=== PATIENT | female | born 1955 | race Two or more races ===

== ENCOUNTER 2022-10-28 23:46 | Inpatient (IN) | payer MEDICARE, OTHER ==
[~2022-10-28] VITALS: Ht 157.5 cm; Wt 63.0 kg
[2022-10-28] MEDS ORDERED: ARIP5TAB10 PO (23:58)
[2022-10-28] MEDS ORDERED: PANT40TA49 PO (23:58)
[2022-10-28] MEDS ORDERED: QUET25TA PO (23:58)
[2022-10-29 00:19] LABS: HEMATOCRIT 38.4 % (31.2-41.9); MEAN CORPUSCULAR HEMOGLOBIN 30.3 uug (24.7-32.8); MEAN CORPUSCULAR VOLUME 90.9 fL (75.5-95.3); PLATELET COUNT (AUTO) 261 K/uL (179-408)
[2022-10-29 00:43] LABS: ETHANOL < 3 MG/DL (0-0)
[2022-10-29 00:59] LABS: CARBON DIOXIDE 28 mmol/L (21-32); CHLORIDE 106 mmol/L (98-107); CREATININE 0.5 mg/dL (0.6-1.3); GLUCOSE 130 mg/dL (74-106); POTASSIUM 3.9 mmol/L (3.5-5.1); UREA NITROGEN, BLOOD 10 mg/dL (7-18)
[2022-10-29 01:05] LABS: *BILIRUBIN,URIN NEGATIVE (NEGATIVE); *CLARITY,URINE CLEAR (CLEAR); *COLOR,URINE LIGHT YELLOW (YELLOW); *KETONES,URINE NEGATIVE (NEGATIVE); *UROBILINOGEN,URINE 0.2 E.U./dl (NORMAL); LEUKOCYTE ESTERASE ,URINE TRACE (NEGATIVE); NITRITE, URINE NEGATIVE (NEGATIVE); UGLUCOSE NEGATIVE (NEGATIVE)
[2022-10-29 01:11] LABS: *BLOOD, URINE TRACE (NEGATIVE)
[2022-10-29 01:12] LABS: THYROID STIMULATING HORMONE 10.103 mIU/mL (0.358-3.740)
[2022-10-29 01:15] LABS: ALANINE AMINOTRANSFERASE 16 U/L (14-59); ALKALINE PHOSPHATASE 79 U/L (50-136); ASPARTATE AMINOTRANSFERASE 10 U/L (15-37); BILIRUBIN,DIRECT 0.1 mg/dL (0.0-0.2); BILIRUBIN,TOTAL 0.3 mg/dL (0.2-1.0); TOTAL PROTEIN, SERUM 6.4 g/dL (6.4-8.2)
[2022-10-29 01:17] LABS: ACETAMINOPHEN < 10.0 ug/mL (10-30)
[2022-10-29 01:28] LABS: BACTERIA,URINE FEW /HPF (NONE SEEN); SQUAMOUS EPITHELIAL CELL,UR FEW /HPF (NONE SEEN); WBC,URINE 0-3 /HPF (0-3)
[2022-10-29 01:29] LABS: *AMPHETAMINE, URINE NEGATIVE (NEGATIVE); *CANNABINOID, URINE NEGATIVE (NEGATIVE); *COCCAINE, URINE NEGATIVE (NEGATIVE); *PHENCYCLIDINE SCREEN,URINE NEGATIVE (NEGATIVE)
[2022-10-29] MEDS ORDERED: MAGNESIUM HYDROXIDE 30 ML LIQUID UDC PO PRN (03:30)
[2022-10-29] MEDS ORDERED: TEMAZEPAM 7.5 MG CAPSULE PO PRN (03:30)
[2022-10-29] MEDS ORDERED: ACETAMINOPHEN 325 MG TABLET PO PRN (03:30)
[2022-10-29] MEDS ORDERED: BLOOD SUGAR DIAGNOSTIC 1 EACH STRIP VI ONE (03:30)
[2022-10-29 04:16] VITALS: BP 165/97
[2022-10-29 07:30] VITALS: BP 145/75
[2022-10-29] MEDS: ARIPIPRAZOLE 5 MG TABLET PO SCH ×2 (14:33→20:06)
[2022-10-29 16:00] VITALS: BP 126/80
[2022-10-29 20:02] VITALS: BP 152/71
[2022-10-29] MEDS: CEphaleXIN 500 MG CAPSULE PO SCH (20:26)
[2022-10-30] MEDS: PANTOPRAZOLE SODIUM 40 MG TABLET.DR PO SCH (06:14)
[2022-10-30 07:37] VITALS: BP 149/97
[2022-10-30] MEDS: CEphaleXIN 500 MG CAPSULE PO SCH ×2 (08:18→20:08)
[2022-10-30] MEDS: ARIPIPRAZOLE 5 MG TABLET PO SCH (08:19)
[2022-10-30 08:22] LABS: HEMATOCRIT 39.4 % (31.2-41.9); MEAN CORPUSCULAR HEMOGLOBIN 30.4 uug (24.7-32.8); MEAN CORPUSCULAR VOLUME 90.5 fL (75.5-95.3); PLATELET COUNT (AUTO) 289 K/uL (179-408)
[2022-10-30 08:40] LABS: BILIRUBIN,DIRECT 0.1 mg/dL (0.0-0.2); BILIRUBIN,TOTAL 0.3 mg/dL (0.2-1.0); CREATININE 0.6 mg/dL (0.6-1.3); MAGNESIUM 2.2 mg/dL (1.8-2.4); PHOSPHOROUS 3.5 mg/dL (2.5-4.9); POTASSIUM 4.1 mmol/L (3.5-5.1); TOTAL PROTEIN, SERUM 7.3 g/dL (6.4-8.2)
[2022-10-30 16:34] VITALS: BP 137/81
[2022-10-30 20:00] VITALS: BP 155/90
[2022-10-30] MEDS: LORAZEPAM 1 MG TABLET PO PRN (20:08)
[2022-10-30] MEDS ORDERED: ARIPIPRAZOLE 10 MG TABLET PO SCH (21:00)
[2022-10-31 04:43] VITALS: BP 146/86
[2022-10-31] MEDS: PANTOPRAZOLE SODIUM 40 MG TABLET.DR PO SCH (06:07)
[2022-10-31] MEDS: LEVOTHYROXINE SODIUM 25 MCG TABLET PO SCH (06:07)
[2022-10-31 07:54] VITALS: BP 151/99
[2022-10-31] MEDS: ARIPIPRAZOLE 5 MG TABLET PO SCH (08:30)
[2022-10-31] MEDS: CEphaleXIN 500 MG CAPSULE PO SCH ×2 (08:30→20:46)
[2022-10-31] MEDS: MAG HYDROX/AL HYDROX/SIMETH 30 ML LIQUID UDC PO PRN (08:36)
[2022-10-31 16:34] VITALS: BP 159/88
[2022-10-31] MEDS: AMLODIPINE 5 MG TABLET PO SCH (17:08)
[2022-10-31 19:57] VITALS: BP 147/85
[2022-10-31] MEDS: ARIPIPRAZOLE 10 MG TABLET PO SCH (20:46)
[2022-10-31] MEDS: LORAZEPAM 1 MG TABLET PO PRN (20:46)
[2022-11-01] MEDS: LEVOTHYROXINE SODIUM 25 MCG TABLET PO SCH (06:08)
[2022-11-01] MEDS: PANTOPRAZOLE SODIUM 40 MG TABLET.DR PO SCH (06:09)
[2022-11-01 07:44] VITALS: BP 114/73
[2022-11-01] MEDS: CEphaleXIN 500 MG CAPSULE PO SCH ×2 (08:26→20:24)
[2022-11-01] MEDS: ARIPIPRAZOLE 5 MG TABLET PO SCH (08:26)
[2022-11-01] MEDS: AMLODIPINE 5 MG TABLET PO SCH (08:26)
[2022-11-01] MEDS: MAG HYDROX/AL HYDROX/SIMETH 30 ML LIQUID UDC PO PRN (15:58)
[2022-11-01 16:25] VITALS: BP 130/78
[2022-11-01 20:06] VITALS: BP 133/77
[2022-11-01] MEDS: ARIPIPRAZOLE 10 MG TABLET PO SCH (20:24)
[2022-11-02] MEDS: LEVOTHYROXINE SODIUM 25 MCG TABLET PO SCH (06:02)
[2022-11-02] MEDS: PANTOPRAZOLE SODIUM 40 MG TABLET.DR PO SCH (06:03)
[2022-11-02 07:30] VITALS: BP 132/82
[2022-11-02] MEDS: ARIPIPRAZOLE 5 MG TABLET PO SCH ×2 (08:24→16:23)
[2022-11-02] MEDS: AMLODIPINE 5 MG TABLET PO SCH (08:24)
[2022-11-02] MEDS: CEphaleXIN 500 MG CAPSULE PO SCH ×2 (08:25→20:11)
[2022-11-02 16:00] VITALS: BP 113/66
[2022-11-02] MEDS: ARIPIPRAZOLE 10 MG TABLET PO SCH (20:10)
[2022-11-02 20:18] VITALS: BP 123/70
[2022-11-03] MEDS: LEVOTHYROXINE SODIUM 25 MCG TABLET PO SCH (06:08)
[2022-11-03] MEDS: PANTOPRAZOLE SODIUM 40 MG TABLET.DR PO SCH (06:08)
[2022-11-03 07:30] VITALS: BP 144/87
[2022-11-03] MEDS: AMLODIPINE 5 MG TABLET PO SCH (08:36)
[2022-11-03] MEDS: ARIPIPRAZOLE 5 MG TABLET PO SCH ×2 (08:36→17:20)
[2022-11-03] MEDS: CEphaleXIN 500 MG CAPSULE PO SCH (08:37)
[2022-11-03 16:00] VITALS: BP 116/68
[2022-11-03 19:55] VITALS: BP 137/70
[2022-11-03] MEDS: ARIPIPRAZOLE 10 MG TABLET PO SCH (20:26)
[2022-11-04] MEDS: PANTOPRAZOLE SODIUM 40 MG TABLET.DR PO SCH (06:16)
[2022-11-04] MEDS: LEVOTHYROXINE SODIUM 25 MCG TABLET PO SCH (06:16)
[2022-11-04 07:44] VITALS: BP 140/80
[2022-11-04] MEDS: AMLODIPINE 5 MG TABLET PO SCH (09:40)
[2022-11-04] MEDS: ARIPIPRAZOLE 5 MG TABLET PO SCH ×2 (09:40→16:39)
[2022-11-04 15:05] VITALS: BP 123/77
[2022-11-04 19:55] VITALS: BP 132/80
[2022-11-04] MEDS: ARIPIPRAZOLE 10 MG TABLET PO SCH (20:22)
[2022-11-04] MEDS: LORAZEPAM 1 MG TABLET PO PRN (20:22)
[2022-11-05] MEDS: PANTOPRAZOLE SODIUM 40 MG TABLET.DR PO SCH (06:24)
[2022-11-05] MEDS: LEVOTHYROXINE SODIUM 25 MCG TABLET PO SCH (06:24)
[2022-11-05 07:30] VITALS: BP 122/88
[2022-11-05] MEDS: ARIPIPRAZOLE 5 MG TABLET PO SCH (09:10)
[2022-11-05] MEDS: AMLODIPINE 5 MG TABLET PO SCH (09:11)
[2022-11-05] MEDS: risperiDONE-M 0.5 MG TAB.RAPDIS PO SCH ×2 (12:37→16:38)
[2022-11-05 16:00] VITALS: BP 95/59
[2022-11-05] MEDS: MAG HYDROX/AL HYDROX/SIMETH 30 ML LIQUID UDC PO PRN (17:10)
[2022-11-05 19:41] VITALS: BP 101/56
[2022-11-05] MEDS: LORAZEPAM 1 MG TABLET PO PRN (20:30)
[2022-11-05] MEDS ORDERED: risperiDONE-M 0.5 MG TAB.RAPDIS PO SCH (21:00)
[2022-11-05] MEDS ORDERED: ARIPIPRAZOLE 10 MG TABLET PO SCH (21:00)
[2022-11-06] MEDS: LEVOTHYROXINE SODIUM 25 MCG TABLET PO SCH (06:30)
[2022-11-06] MEDS: PANTOPRAZOLE SODIUM 40 MG TABLET.DR PO SCH (06:30)
[2022-11-06 07:48] VITALS: BP 136/74
[2022-11-06] MEDS: AMLODIPINE 5 MG TABLET PO SCH (08:30)
[2022-11-06] MEDS: risperiDONE-M 0.5 MG TAB.RAPDIS PO SCH ×3 (12:37→20:26)
[2022-11-06 16:08] VITALS: BP 133/76
[2022-11-06 20:00] VITALS: BP 135/80
[2022-11-06] MEDS: LORAZEPAM 1 MG TABLET PO PRN (20:26)
[2022-11-07] MEDS: LEVOTHYROXINE SODIUM 25 MCG TABLET PO SCH (06:15)
[2022-11-07] MEDS: PANTOPRAZOLE SODIUM 40 MG TABLET.DR PO SCH (06:15)
[2022-11-07 08:10] VITALS: BP 123/80
[2022-11-07] MEDS: AMLODIPINE 5 MG TABLET PO SCH (08:11)
[2022-11-07] MEDS: risperiDONE-M 0.5 MG TAB.RAPDIS PO SCH ×3 (14:36→20:22)
[2022-11-07] MEDS: MAG HYDROX/AL HYDROX/SIMETH 30 ML LIQUID UDC PO PRN (15:21)
[2022-11-07 16:00] VITALS: BP 125/68
[2022-11-07 19:41] VITALS: BP 118/76
[2022-11-07] MEDS: LORAZEPAM 1 MG TABLET PO PRN (20:22)
[2022-11-08] MEDS: PANTOPRAZOLE SODIUM 40 MG TABLET.DR PO SCH (06:51)
[2022-11-08] MEDS: LEVOTHYROXINE SODIUM 25 MCG TABLET PO SCH (06:51)
[2022-11-08 08:42] VITALS: BP 120/75
[2022-11-08] MEDS: AMLODIPINE 5 MG TABLET PO SCH (09:19)
[2022-11-08] MEDS: risperiDONE-M 0.5 MG TAB.RAPDIS PO SCH ×3 (12:35→21:13)
[2022-11-08 16:15] VITALS: BP 132/82
[2022-11-08 19:56] VITALS: BP 121/78
[2022-11-08] MEDS: BENZTROPINE MESYLATE 0.5 MG TABLET PO SCH (21:12)
[2022-11-08] MEDS: LORAZEPAM 1 MG TABLET PO PRN (21:12)
[2022-11-09] MEDS: PANTOPRAZOLE SODIUM 40 MG TABLET.DR PO SCH (06:18)
[2022-11-09] MEDS: LEVOTHYROXINE SODIUM 25 MCG TABLET PO SCH (06:18)
[2022-11-09 08:07] VITALS: BP 118/72
[2022-11-09] MEDS: AMLODIPINE 5 MG TABLET PO SCH (09:00)
[2022-11-09] MEDS: BENZTROPINE MESYLATE 0.5 MG TABLET PO SCH ×2 (09:00→20:32)
[2022-11-09] MEDS: risperiDONE-M 0.5 MG TAB.RAPDIS PO SCH ×3 (12:50→20:32)
[2022-11-09 15:52] VITALS: BP 117/78
[2022-11-09 19:39] VITALS: BP 118/76
[2022-11-10] MEDS: PANTOPRAZOLE SODIUM 40 MG TABLET.DR PO SCH (06:13)
[2022-11-10] MEDS: LEVOTHYROXINE SODIUM 25 MCG TABLET PO SCH (06:13)
[2022-11-10 07:30] VITALS: BP_SYST 131; BP_SYST 142; BP_DIAS 47; BP_DIAS 89
[2022-11-10] MEDS: BENZTROPINE MESYLATE 0.5 MG TABLET PO SCH ×2 (08:14→20:35)
[2022-11-10] MEDS: AMLODIPINE 5 MG TABLET PO SCH (08:15)
[2022-11-10] MEDS: risperiDONE-M 0.5 MG TAB.RAPDIS PO SCH ×3 (13:53→20:36)
[2022-11-10 16:00] VITALS: BP 132/72
[2022-11-10 21:15] VITALS: BP 144/88
[2022-11-11] MEDS: LORAZEPAM 1 MG TABLET PO PRN (02:24)
[2022-11-11] MEDS: LEVOTHYROXINE SODIUM 25 MCG TABLET PO SCH (05:59)
[2022-11-11] MEDS: PANTOPRAZOLE SODIUM 40 MG TABLET.DR PO SCH (05:59)
[2022-11-11 08:00] VITALS: BP 118/72
[2022-11-11] MEDS: BENZTROPINE MESYLATE 0.5 MG TABLET PO SCH ×2 (08:38→20:57)
[2022-11-11] MEDS: AMLODIPINE 5 MG TABLET PO SCH (08:38)
[2022-11-11] MEDS: risperiDONE-M 0.5 MG TAB.RAPDIS PO SCH ×3 (12:52→20:57)
[2022-11-11 16:00] VITALS: BP 123/72
[2022-11-11 20:00] VITALS: BP 122/71
[2022-11-12] MEDS: LEVOTHYROXINE SODIUM 25 MCG TABLET PO SCH (06:55)
[2022-11-12] MEDS: PANTOPRAZOLE SODIUM 40 MG TABLET.DR PO SCH (06:55)
[2022-11-12 08:20] VITALS: BP 137/82
[2022-11-12] MEDS: AMLODIPINE 5 MG TABLET PO SCH (11:05)
[2022-11-12] MEDS: BENZTROPINE MESYLATE 0.5 MG TABLET PO SCH ×2 (11:05→20:22)
[2022-11-12] MEDS: risperiDONE-M 0.5 MG TAB.RAPDIS PO SCH ×3 (13:46→20:22)
[2022-11-12 16:08] VITALS: BP 125/78
[2022-11-12 20:05] VITALS: BP 139/81
[2022-11-13] MEDS: LEVOTHYROXINE SODIUM 25 MCG TABLET PO SCH (06:06)
[2022-11-13] MEDS: PANTOPRAZOLE SODIUM 40 MG TABLET.DR PO SCH (06:06)
[2022-11-13 07:50] VITALS: BP 137/68
[2022-11-13] MEDS: AMLODIPINE 5 MG TABLET PO SCH (08:41)
[2022-11-13] MEDS: BENZTROPINE MESYLATE 0.5 MG TABLET PO SCH ×2 (08:42→20:38)
[2022-11-13] MEDS: risperiDONE-M 0.5 MG TAB.RAPDIS PO SCH ×3 (12:46→20:38)
[2022-11-13 16:03] VITALS: BP 139/79
[2022-11-13 20:00] VITALS: BP 142/87
[2022-11-14] MEDS: PANTOPRAZOLE SODIUM 40 MG TABLET.DR PO SCH (06:27)
[2022-11-14] MEDS: LEVOTHYROXINE SODIUM 25 MCG TABLET PO SCH (06:27)
[2022-11-14] MEDS: AMLODIPINE 5 MG TABLET PO SCH (08:32)
[2022-11-14] MEDS: BENZTROPINE MESYLATE 0.5 MG TABLET PO SCH ×2 (08:32→21:01)
[2022-11-14 08:35] VITALS: BP 143/90
[2022-11-14] MEDS: risperiDONE-M 0.5 MG TAB.RAPDIS PO SCH ×3 (12:18→21:01)
[2022-11-14 16:02] VITALS: BP 128/74
[2022-11-14 19:54] VITALS: BP 140/76
[2022-11-15] MEDS: PANTOPRAZOLE SODIUM 40 MG TABLET.DR PO SCH (06:44)
[2022-11-15] MEDS: LEVOTHYROXINE SODIUM 25 MCG TABLET PO SCH (06:44)
[2022-11-15 08:07] VITALS: BP 136/82
[2022-11-15 08:21] VITALS: BP 136/82
[2022-11-15] MEDS: BENZTROPINE MESYLATE 0.5 MG TABLET PO SCH (08:21)
[2022-11-15] MEDS: AMLODIPINE 5 MG TABLET PO SCH (08:21)
== END 2022-11-15 11:30 | DRG 885 ==
LOC: ER 10-29 00:05 → GPS 10-29 01:51
PROVIDERS: ADMIT Psychiatry & Neurology Psychosomatic Medicine; ATTEND Nurse Practitioner Acute Care
DX: F20.9 Schizophrenia, unspecified (principal); N39.0 Urinary tract infection, site not specified; E03.9 Hypothyroidism, unspecified; R41.9 Unspecified symptoms and signs involving cognitive functions and awareness; B96.89 Other specified bacterial agents as the cause of diseases classified elsewhere; K44.9 Diaphragmatic hernia without obstruction or gangrene; Z79.899 Other long term (current) drug therapy; R94.31 Abnormal electrocardiogram [ECG] [EKG]; Z20.822 Contact with and (suspected) exposure to COVID-19
CPT/HCPCS: 36415; 83735; 84100; 84443; 84481; 85025; 93005; G0480